=== PATIENT | female | born 1950 | race Caucasian/White ===

== ENCOUNTER → 2017-07-22 | Outpatient (CLI) | payer OTHER ==
[~2017-07-22] VITALS: Ht 157.5 cm; Wt 103.8 kg
[~2017-07-22] MED LIST: ESSENTIAL WOMA1 EAC1 PO; GLYCOTROL CAPS1 EACH PO; LO-DOSE ASPIRIN81 M2 PO; SYNTHROID25 MCG PO; VITAMIN E100 UNIT PO
== END | disposition home or self-care (01) ==
LOC: AMB 08:30
PROC: 0DJD8ZZ Inspection of Lower Intestinal Tract, Via Natural or Artificial Opening Endoscopic (ICD-10-PCS; principal; 2017-07-22)
DX: Z12.11 Encounter for screening for malignant neoplasm of colon (principal); K64.8 Other hemorrhoids; E03.9 Hypothyroidism, unspecified; Z79.82 Long term (current) use of aspirin